=== PATIENT | female | born 1970 | race Caucasian/White ===

== ENCOUNTER 2016-12-26 10:48 | Observation (INO) | payer SELFPAY ==
[2016-12-26] VITALS (7 sets, daily range): BP systolic 109–118; BP diastolic 57–80; PULSE 85–97; RESP 16–20; TEMP 98–98.4; O2SAT 96–100
[~2016-12-26] VITALS: Ht 175.3 cm; Wt 78.3 kg
--- NOTE | 2016-12-26 11:01 | PD ---
HPI Chief Complaint: Trauma (Alert) Time Seen by Provider: 10:50 Travel History International Travel<30 days: No (unknown) Contact w/Intl Traveler<30days: No (unknown) Traveled to known affect area: No (unknown) History of Present Illness HPI This is a 39-mgp-dxip-old female who is brought in as a trauma alert by EMS. The patient was working at her that [employer] office when she had an unwitnessed seizure and struck the back of her head. Pharmacy Benefit Manager call trauma alert based on social media executive discretion and respiratory rate of greater than 30. The patient was apparently postictal in the field and as she was being transported in, she started to regain her mentation. The patient is still slightly postictal but able to give history that she has head pain only. She denies any neck pain. There was reported incontinence in the field. Allergies-Medications (Allergen,Severity, Reaction): Coded Allergies: No Known Allergies (Unverified , 12/26/16) Reported Meds & Prescriptions Reported Meds & Active Scripts Active Reported Lamictal (Lamotrigine) 200 Mg Tab 200 Mg PO HS Lamictal (Lamotrigine) 100 Mg Tab 100 Mg PO DAILY Review of Systems Except as stated in HPI: all other systems reviewed are Neg Eyes: No: Diploplia, Blurred Vision HENT: Positive: Headaches, No: Neck Pain (posterior occipital) Cardiovascular: No: Chest Pain or Discomfort, Palpitations Gastrointestinal: No: Nausea, Vomiting, Abdominal Pain Genitourinary: Positive: Incontinence Musculoskeletal: No: Weakness, Pain Neurologic: Positive: Headache (posterior occipital), Change in Mentation, Incontinence, No: Weakness, Dizziness Physical Exam Narrative GENERAL: Well-developed well-nourished female in no acute respiratory distress. SKIN: Focused skin assessment warm/dry. HEAD: 1 cm laceration to the posterior occiput. No bony deformity appreciated. Normocephalic. EYES: Pupils equal and round. No scleral icterus. No injection or drainage. ENT: No nasal bleeding or discharge. Mucous membranes pink and moist. NECK: Trachea midline. Supple. No posterior spinous process tenderness. CARDIOVASCULAR: Regular rate and rhythm. No murmur appreciated. RESPIRATORY: No accessory muscle use. Clear to auscultation. Breath sounds equal bilaterally. GASTROINTESTINAL: Abdomen soft, non-tender, nondistended. MUSCULOSKELETAL: No obvious deformities. No clubbing. No cyanosis. No edema. NEUROLOGICAL: Awake and alert. No obvious cranial nerve deficits. Motor grossly within normal limits. Normal speech. Data Data Last Documented VS Vital Signs Date Time Temp Pulse Resp B/P Pulse Ox O2 Delivery O2 Flow Rate FiO2 12/26/16 11:46 98.0 87 16 118/64 99 12/26/16 10:58 Nasal Cannula 2.00 Orders I-Stat Profile (12/26/16 10:50) I-Stat Creatinine (12/26/16 10:50) Complete Blood Count With Diff (12/26/16 10:50) Prothrombin Time / Inr (Pt) (12/26/16 10:50) Act Partial Throm Time (Ptt) (12/26/16 10:50) Type And Screen (12/26/16 10:50) Ct Brain W/O Iv Contrast(Rout) (12/26/16 10:50) Ct Cerv Spine W/O Contrast (12/26/16 10:50) Iv Access Insert/Monitor (12/26/16 10:50) Ecg Monitoring (12/26/16 10:50) Oximetry (12/26/16 10:50) Oxygen Administration (12/26/16 10:50) Wound Care (12/26/16 11:21) Lidocai-Epi 1%-1:100,000 Inj (Xylocaine- (12/26/16 11:30) Hddo-Scq-Sjsgiv (Booster) Inj (Boostrix (12/26/16 11:30) Lorazepam Inj (Ativan Inj) (12/26/16 12:15) Magnesium (Mg) (12/26/16 12:22) Phosphorus (Po4) (12/26/16 12:22) Drug Screen, Random Urine (12/26/16 12:22) Labs Laboratory Tests Test 12/26/16 10:51 White Blood Count 7.8 TH/MM3 Red Blood Count 5.05 MIL/MM3 Hemoglobin 15.3 GM/DL Bedside Hemoglobin 15.6 G/DL Hematocrit 45.1 % Bedside Hematocrit 46.0 % Mean Corpuscular Volume 89.4 FL Mean Corpuscular Hemoglobin 30.3 PG Mean Corpuscular Hemoglobin 33.9 % Concent Red Cell Distribution Width 12.9 % Platelet Count 308 TH/MM3 Mean Platelet Volume 8.5 FL Neutrophils (%) (Auto) 69.5 % Lymphocytes (%) (Auto) 22.0 % Monocytes (%) (Auto) 6.8 % Eosinophils (%) (Auto) 0.6 % Basophils (%) (Auto) 1.1 % Neutrophils # (Auto) 5.4 TH/MM3 Lymphocytes # (Auto) 1.7 TH/MM3 Monocytes # (Auto) 0.5 TH/MM3 Eosinophils # (Auto) 0.0 TH/MM3 Basophils # (Auto) 0.1 TH/MM3 CBC Comment DIFF FINAL Differential Comment Prothrombin Time 10.7 SEC Prothromb Time International 1.0 RATIO Ratio Activated Partial 26.0 SEC Thromboplast Time Bedside Sodium 137 MMOL/L Bedside Potassium 3.6 MMOL/L Bedside Chloride 102 MMOL/L Bedside Blood Urea Nitrogen 10 MG/DL Bedside Creatinine 0.9 MG/DL Bedside Glucose 122 MG/DL Blood Type B POSITIVE Antibody Screen NEGATIVE MDM Medical Screen Exam Complete: Yes Emergency Medical Condition: Yes Differential Diagnosis Seizure versus traumatic brain injury versus scalp laceration Narrative Course This patient presents after having a seizure at work. The patient fell and struck the back of her head during her seizure. She was called a trauma alert in the field however soon as she arrived it was obvious that she had just had a seizure and had a scalp laceration from the procedure. The patient's head CT and cervical spine CT showed no evidence of acute process. Laboratory tests are within normal limits. The patient did have another witnessed tonoclonic seizure lasted roughly 40 seconds here in the department. She was loaded with 2 mg of Ativan. She will be admitted to the medicine service. Dr. Langston, [facility], was gracious enough to accept the patient for admission. She'll be admitted to inpatient status. Diagnosis Diagnosis: Primary Impression: Refractory tonic-clonic seizure Additional Impression: posterior scalp laceration Jaspal Walker MD Dec 26, 2016 11:01
[2016-12-26 11:08] LABS: I-STAT POTASSIUM 3.6 MMOL/L (3.5-4.9)
[2016-12-26 11:10] LABS: AUTOMATED NEUTROPHIL # 5.4 TH/MM3 (1.8-7.7); BASOPHIL # 0.1 TH/MM3 (0-0.2); BASOPHIL % 1.1 % (0.0-2.0); EOSINOPHIL % 0.6 % (0.0-4.0); HEMATOCRIT 45.1 % (35.0-46.0); HEMO FLAGS DIFF FINAL; LYMPHOCYTE # 1.7 TH/MM3 (1.0-4.8); MEAN CELL VOLUME 89.4 FL (80.0-100.0); MEAN CORPUSCULAR HEMOGLOBIN 30.3 PG (27.0-34.0); MEAN CORPUSCULAR HGB CONC 33.9 % (32.0-36.0); MONO % 6.8 % (0.0-8.0); NEUT % 69.5 % (16.0-70.0); PLATELET COUNT 308 TH/MM3 (150-450); RED BLOOD COUNT 5.05 MIL/MM3 (4.00-5.30); RED CELL DISTRIBUTION WIDTH 12.9 % (11.6-17.2); WHITE BLOOD COUNT 7.8 TH/MM3 (4.0-11.0)
[2016-12-26 11:20] LABS: PROTHROMBIN TIME - PATIENT 10.7 SEC (9.8-11.6)
[2016-12-26] MEDS ORDERED: DIPHTH/TETANUS/ACEL PERTUSSIS (BOOSTER) 0.5 ML VIAL/PFS IM ONE (11:30)
[2016-12-26] MEDS ORDERED: LIDOCAINE 1%/EPINEPHrine 1:100,000 SOLN 20 ML VIAL INFIL ONE (11:30)
--- NOTE | 2016-12-26 11:31 | RADRPT ---
EXAM DATE/TIME: 12/26/2016 10:58 [facility] COMPARISON: No previous studies available for comparison. INDICATIONS : Seizure with fall , posterior laceration RADIATION DOSE: 39.55 CTDIvol (mGy) MEDICAL HISTORY : Seizures. SURGICAL HISTORY : Non-responsive. ENCOUNTER: Initial ACUITY: 1 day PAIN SCALE: 5/10 LOCATION: cranial TECHNIQUE: Multiple contiguous axial images were obtained of the head. Using automated exposure control and adj ustment of the mA and/or kV according to patient size, radiation dose was kept as low as reasonably a chievable to obtain optimal diagnostic quality images. FINDINGS: CEREBRUM: The ventricles are normal for age. No evidence of midline shift, mass lesion, hemorrhage or acute in farction. No extra-axial fluid collections are seen. POSTERIOR FOSSA: The cerebellum and brainstem are intact. The 4th ventricle is midline. The cerebellopontine angle i s unremarkable. EXTRACRANIAL: The visualized portion of the orbits is intact. SKULL: The calvaria is intact. No evidence of skull fracture. CONCLUSION: No acute intracranial findings. Pepito Odonnell MD on December 26, 2016 at 11:27 Board Certified Radiologist. This report was verified electronically.
--- NOTE | 2016-12-26 11:43 | PD ---
Physical Exam Date Seen by Provider: Dec 26, 2016 Time Seen by Provider: 11:41 Narrative Trauma alert that presents to the ED for evaluation of trauma. Please refer to my attending's note he asked me to repair laceration. Please refer to his note. Data Data Last Documented VS Vital Signs Date Time Temp Pulse Resp B/P Pulse Ox O2 Delivery O2 Flow Rate FiO2 12/26/16 10:58 100 Nasal Cannula 2.00 Orders I-Stat Profile (12/26/16 10:50) I-Stat Creatinine (12/26/16 10:50) Complete Blood Count With Diff (12/26/16 10:50) Prothrombin Time / Inr (Pt) (12/26/16 10:50) Act Partial Throm Time (Ptt) (12/26/16 10:50) Type And Screen (12/26/16 10:50) Ct Brain W/O Iv Contrast(Rout) (12/26/16 10:50) Ct Cerv Spine W/O Contrast (12/26/16 10:50) Iv Access Insert/Monitor (12/26/16 10:50) Ecg Monitoring (12/26/16 10:50) Oximetry (12/26/16 10:50) Oxygen Administration (12/26/16 10:50) Wound Care (12/26/16 11:21) Lidocai-Epi 1%-1:100,000 Inj (Xylocaine- (12/26/16 11:30) Hcjz-Qqr-Jgagru (Booster) Inj (Boostrix (12/26/16 11:30) Labs Laboratory Tests Test 12/26/16 10:51 White Blood Count 7.8 TH/MM3 Red Blood Count 5.05 MIL/MM3 Hemoglobin 15.3 GM/DL Bedside Hemoglobin 15.6 G/DL Hematocrit 45.1 % Bedside Hematocrit 46.0 % Mean Corpuscular Volume 89.4 FL Mean Corpuscular Hemoglobin 30.3 PG Mean Corpuscular Hemoglobin 33.9 % Concent Red Cell Distribution Width 12.9 % Platelet Count 308 TH/MM3 Mean Platelet Volume 8.5 FL Neutrophils (%) (Auto) 69.5 % Lymphocytes (%) (Auto) 22.0 % Monocytes (%) (Auto) 6.8 % Eosinophils (%) (Auto) 0.6 % Basophils (%) (Auto) 1.1 % Neutrophils # (Auto) 5.4 TH/MM3 Lymphocytes # (Auto) 1.7 TH/MM3 Monocytes # (Auto) 0.5 TH/MM3 Eosinophils # (Auto) 0.0 TH/MM3 Basophils # (Auto) 0.1 TH/MM3 CBC Comment DIFF FINAL Differential Comment Prothrombin Time 10.7 SEC Prothromb Time International 1.0 RATIO Ratio Activated Partial 26.0 SEC Thromboplast Time Bedside Sodium 137 MMOL/L Bedside Potassium 3.6 MMOL/L Bedside Chloride 102 MMOL/L Bedside Blood Urea Nitrogen 10 MG/DL Bedside Creatinine 0.9 MG/DL Bedside Glucose 122 MG/DL Blood Type B POSITIVE [facility] Medical Record Reviewed: Yes Supervised Visit with SAMANTHA: No Procedures Procedure Narrative LACERATION LOCATION: occipital scalp LENGTH: 5 cm NUMBER OF STITCHES/ETHAN: 8 ethan REPAIR: The area of the laceration was prepped with Betadine and sterilely draped. The laceration was infiltrated with 1% Xylocaine. The wound was copiously irrigated and explored without evidence of foreign body, tendon injury or neurovascular injury. The wound was closed using sterile stapler. This was a 1 layer repair. A sterile dressing was applied. The patient was advised to keep the dressing clean and dry. Patient tolerated the procedure well. David Shannon Dec 26, 2016 11:43
[2016-12-26] MEDS ORDERED: LAMI200T PO (12:02)
[2016-12-26] MEDS ORDERED: LAMO100 PO (12:02)
[2016-12-26] MEDS ORDERED: LORazepam 2 MG/ML VIAL IV PUSH ONE (12:15)
--- NOTE | 2016-12-26 12:46 | HHI.HP ---
History of Present Illness Primary Care Physician Unknown Admission Diagnosis Diagnoses: History of Present Illness 39 + y.o female with known seizure disorder-had an unwitnessed fall-postictal during the transport-with hyperventilation-GCS 15 in the trauma bay-c/o headache small occipital open wound-HD stable-neuro intact Review of Systems Constitutional: DENIES: Diaphoretic episodes, Fatigue, Fever, Weight gain, Weight loss, Chills, Dizziness, Change in appetite, Night Sweats Endocrine: DENIES: Abnorml menstrual pattern, Heat/cold intolerance, Polydipsia , Polyuria, Polyphagia Eyes: DENIES: Blurred vision, Diplopia, Eye inflammation, Eye pain, Vision loss , Photosensitivity, Double Vision Ears, nose, mouth, throat: DENIES: Tinnitus, Hearing loss, Vertigo, Nasal discharge, Oral lesions, Throat pain, Hoarseness, Ear Pain, Running Nose, Epistaxis, Sinus Pain, Toothache, Odynophagia Respiratory: DENIES: Apneas, Cough, Snoring, Wheezing, Hemoptysis, Sputum production, Shortness of breath Cardiovascular: DENIES: Chest pain, Palpitations, Syncope, Dyspnea on Exertion , PND, Lower Extremity Edema, Orthopnea, Claudication Gastrointestinal: DENIES: Abdominal pain, Black stools, Bloody stools, Constipation, Diarrhea, Nausea, Vomiting, Difficulty Swallowing, Anorexia Genitourinary: DENIES: Abnormal vaginal bleeding, Dysmenorrhea, Dyspareunia, Sexual dysfunction, Urinary frequency, Urinary incontinence, Urgency, Hematuria , Dysuria, Nocturia, Vaginal discharge Musculoskeletal: DENIES: Joint pain, Muscle aches, Stiffness, Joint Swelling, Back pain, Neck pain Integumentary: DENIES: Abnormal pigmentation, Pruritus, Rash, Nail changes, Breast masses, Breast skin changes, Nipple discharge Immunologic/allergic: DENIES: Eczema, Urticaria Neurologic: DENIES: Abnormal gait, Headache, Localized weakness, Paresthesias, Seizures, Speech Problems, Tremor, Poor Balance Psychiatric: DENIES: Anxiety, Confusion, Mood changes, Depression, Hallucinations, Agitation, Suicidal Ideation, Homicidal Ideation, Delusions Past Family Social History Allergies: Coded Allergies: No Known Allergies (Unverified , 12/26/16) Past Medical History seizure disorder Past Surgical History neg Reported Medications seizure med Active Ordered Medications neg Family History neg Social History neg Physical Exam Vital Signs Vital Signs Date Time Temp Pulse Resp B/P Pulse Ox O2 Delivery O2 Flow Rate FiO2 12/26/16 11:46 98.0 87 16 118/64 99 12/26/16 10:58 100 Nasal Cannula 2.00 12/26/16 10:57 100 2.00 Physical Exam GENERAL: This is a well-nourished, well-developed patient, in no apparent distress.GCS 15 SKIN: No rashes, ecchymoses or lesions. Cool and dry. HEAD: . Normocephalic. No temporal or scalp tenderness.1cm open wound occiput EYES: Pupils equal round and reactive. Extraocular motions intact. No scleral icterus. No injection or drainage. ENT: Nose without bleeding, purulent drainage or septal hematoma. Throat without erythema, tonsillar hypertrophy or exudate. Uvula midline. Airway patent. NECK: Trachea midline. No JVD or lymphadenopathy. Supple, nontender, no meningeal signs. CARDIOVASCULAR: Regular rate and rhythm without murmurs, gallops, or rubs. RESPIRATORY: Clear to auscultation. Breath sounds equal bilaterally. No wheezes , rales, or rhonchi. GASTROINTESTINAL: Abdomen soft, non-tender, nondistended. No hepato-splenomegaly , or palpable masses. No guarding. MUSCULOSKELETAL: Extremities without clubbing, cyanosis, or edema. No joint tenderness, effusion, or edema noted. No calf tenderness. Negative Homans sign bilaterally. NEUROLOGICAL: Awake and alert. Cranial nerves II through XII intact. Motor and sensory grossly within normal limits. Five out of 5 muscle strength in all muscle groups. Normal speech. Laboratory Laboratory Tests Test 12/26/16 10:51 White Blood Count 7.8 Red Blood Count 5.05 Hemoglobin 15.3 Bedside Hemoglobin 15.6 Hematocrit 45.1 Bedside Hematocrit 46.0 Mean Corpuscular Volume 89.4 Mean Corpuscular Hemoglobin 30.3 Mean Corpuscular Hemoglobin 33.9 Concent Red Cell Distribution Width 12.9 Platelet Count 308 Mean Platelet Volume 8.5 Neutrophils (%) (Auto) 69.5 Lymphocytes (%) (Auto) 22.0 Monocytes (%) (Auto) 6.8 Eosinophils (%) (Auto) 0.6 Basophils (%) (Auto) 1.1 Neutrophils # (Auto) 5.4 Lymphocytes # (Auto) 1.7 Monocytes # (Auto) 0.5 Eosinophils # (Auto) 0.0 Basophils # (Auto) 0.1 CBC Comment DIFF FINAL Differential Comment Prothrombin Time 10.7 Prothromb Time International 1.0 Ratio Activated Partial 26.0 Thromboplast Time Bedside Sodium 137 Bedside Potassium 3.6 Bedside Chloride 102 Bedside Blood Urea Nitrogen 10 Bedside Creatinine 0.9 Bedside Glucose 122 Blood Type B POSITIVE Antibody Screen NEGATIVE Result Diagram: 12/26/[address] head- negative Assessment and Plan Assessment and Plan S/p fall after seizure postictal state GCS 15 in the trauma bay CT head negative for injury No traumatic issues Care transferred to the EM physician Juju Barrow MD Dec 26, 2016 12:46
--- NOTE | 2016-12-26 13:02 | RADRPT ---
EXAM DATE/TIME: 12/26/2016 10:58 [facility] COMPARISON: No previous studies available for comparison. INDICATIONS : Episode of dizziness inability to ambulate RADIATION DOSE: 20.62 CTDIvol (mGy) MEDICAL HISTORY : Hypertension. Diabetes mellitus type 2. SURGICAL HISTORY : Non-responsive. None. ENCOUNTER: Initial ACUITY: 1 day PAIN SCALE: 6/10 LOCATION: neck TECHNIQUE: Volumetric scanning of the cervical spine was performed. Multiplanar reconstructions in the sagittal, coronal and oblique axial planes were performed. Using automated exposure control and adjustment o f the mA and/or kV according to patient size, radiation dose was kept as low as reasonably achievable to obtain optimal diagnostic quality images. FINDINGS: CT of the cervical spine was performed in sagittal and axial planes. There is straightening of the no rmal cervical lordosis which may be secondary positioning or spasm. No focal areas of marrow replacem ent are identified. The craniocervical junction appears normal. Axial images were performed from C2-C 3 through C7-T1. C2-C3: There is mild diffuse annular bulge of the disc. The neural foramina are clear bilaterally. There is no significant spinal canal stenosis. C3-C4: No significant abnormalities identified. C4-C5: No significant abnormalities identified. C5-C6: A small central protrusion is present impinging on the thecal sac but not significantly deforming the cord. There is no significant spinal canal stenosis. The neural foramina are clear bilaterally. C6-C7: No significant abnormalities identified. C7-T1: No significant abnormalities identified. CONCLUSION: 1. There is no evidence of acute fracture. 2. Since protrusion at C5-C6 without stenosis. 3. Nonspecific mildly enlarged group 2 cervical adenopathy bilaterally. Floyd Vergara MD on December 26, 2016 at 12:55 Board Certified Radiologist. This report was verified electronically.
[2016-12-26] MEDS ORDERED: NALOXONE HCL 0.4 MG/ML AMP IV PRN (14:15)
[2016-12-26] MEDS ORDERED: ACETAMINOPHEN 325 MG TAB PO PRN (14:15)
[2016-12-26] MEDS ORDERED: MAGNESIUM HYDROXIDE SUSP 30 ML CUP PO PRN (14:15)
[2016-12-26] MEDS ORDERED: ONDANSETRON HCL 4 MG/2 ML VIAL IVP PRN (14:15)
[2016-12-26] MEDS ORDERED: SODIUM CHLORIDE 0.9% FLUSH 10 ML FLUSH IV FLUSH PRN (14:15)
[2016-12-26] MEDS ORDERED: LORazepam 2 MG/ML VIAL IV PUSH PRN (14:30)
[2016-12-26 14:48] LABS: MAGNESIUM 1.8 MG/DL (1.5-2.5)
[2016-12-26] MEDS: D5-1/2 NS + KCL 20 MEQ INJ 1,000 ML IV SCH (14:57)
[2016-12-26] MEDS ORDERED: lamoTRIgine 100 MG TAB PO ONE (16:15)
--- NOTE | 2016-12-26 16:58 | HHI.HP ---
[facility] Unknown Admission Diagnosis recurrent seizure, posterior scalp laceration. Diagnoses: Chief Complaint: Seizure Travel History International Travel<30 Days: No (unknown) Contact w/Intl Traveler <30 Da: No (unknown) Traveled to Known Affected Are: No (unknown) History of Present Illness Patient has a history of seizure disorder in which she was found down on the ground at work with head trauma. EMS was called and patient was post ictal and she was transferred to emergency department. Patient did had a witnessed seizure in the ED by the nurse in which she was given Ativan. When I saw patient she is able to give me a history. Patient stated that she does have a history of seizure disorders and she is on Lamictal 100 mg a.m. and 200 mg p.m. She stated that for the past year she's been having more episodes seizures. Patient stated that her PCP is managing the seizures but has not changed her medication when she started having increased episodes. At the moment patient denied mild posterior pain at the suture site in which she had a laceration on her scalp and that was stapled in emergency department. She denied any visual changes, focal neurological deficits or any nausea or vomiting. Patient sisters at the bedside. Review of Systems Constitutional: COMPLAINS OF: Fatigue, DENIES: Diaphoretic episodes, Fever, Weight gain, Weight loss, Chills, Dizziness, Change in appetite, Night Sweats Endocrine: DENIES: Abnorml menstrual pattern, Heat/cold intolerance, Polydipsia , Polyuria, Polyphagia Eyes: DENIES: Blurred vision, Diplopia, Eye inflammation, Eye pain, Vision loss , Photosensitivity, Double Vision Ears, nose, mouth, throat: DENIES: Tinnitus, Hearing loss, Vertigo, Nasal discharge, Oral lesions, Throat pain, Hoarseness, Ear Pain, Running Nose, Epistaxis, Sinus Pain, Toothache, Odynophagia Respiratory: DENIES: Apneas, Cough, Snoring, Wheezing, Hemoptysis, Sputum production, Shortness of breath Cardiovascular: DENIES: Chest pain, Palpitations, Syncope, Dyspnea on Exertion , PND, Lower Extremity Edema, Orthopnea, Claudication Gastrointestinal: DENIES: Abdominal pain, Black stools, Bloody stools, Constipation, Diarrhea, Nausea, Vomiting, Difficulty Swallowing, Anorexia Genitourinary: DENIES: Abnormal vaginal bleeding, Dysmenorrhea, Dyspareunia, Sexual dysfunction, Urinary frequency, Urinary incontinence, Urgency, Hematuria , Dysuria, Nocturia, Vaginal discharge Musculoskeletal: DENIES: Joint pain, Muscle aches, Stiffness, Joint Swelling, Back pain, Neck pain Integumentary: DENIES: Abnormal pigmentation, Pruritus, Rash, Nail changes, Breast masses, Breast skin changes, Nipple discharge Hematologic/lymphatic: DENIES: Bruising, Lymphadenopathy Immunologic/allergic: DENIES: Eczema, Urticaria Neurologic: DENIES: Abnormal gait, Headache, Localized weakness, Paresthesias, Seizures, Speech Problems, Tremor, Poor Balance Psychiatric: DENIES: Anxiety, Confusion, Mood changes, Depression, Hallucinations, Agitation, Suicidal Ideation, Homicidal Ideation, Delusions Past Family Social History Past Medical History Seizure disorder Past Surgical History Denies any past surgical history. Reported Medications Reported Meds & Active Scripts Active Reported Lamictal (Lamotrigine) 200 Mg Tab 200 Mg PO HS Lamictal (Lamotrigine) 100 Mg Tab 100 Mg PO DAILY Allergies: Coded Allergies: No Known Allergies (Unverified , 12/26/16) Active Ordered Medications Current Medications Lidocaine/ Epinephrine (Xylocaine-Epi 1%-1:100,000 Inj) 10 ml ONCE ONCE INFIL Last administered on 12/26/16 11:43; Start 12/26/16 at 11:30; Stop 12/26/16 at 11:31; Status DC Diphtheria/ Tetanus/Acell Pertussis (Boostrix Inj) 0.5 ml ONCE ONCE IM Last administered on 12/26/16 11:43; Start 12/26/16 at 11:30; Stop 12/26/16 at 11:31 ; Status DC Lorazepam 1 mg 1 mg ONCE ONCE IV PUSH Last administered on 12/26/16 12:08; Start 12/26/16 at 12:15; Stop 12/26/16 at 12:16; Status DC Potassium Chloride/Dextrose/ Sod Cl (D5-1/2 NS + KCl 20 Meq Inj) 1,000 ml @ 100 mls/hr Q10H IV Last administered on 12/26/16 14:57; Start 12/26/16 at 16: 00 Sodium Chloride (NS Flush) 2 ml UNSCH PRN IV FLUSH FLUSH AFTER USING IV ACCESS ; Start 12/26/16 at 14:15 Sodium Chloride (NS Flush) 2 ml BID IV FLUSH ; Start 12/26/16 at 21:00 Acetaminophen (Tylenol) 650 mg Q4H PRN PO TEMP > 100.4; Start 12/26/16 at 14:15 Ondansetron HCl (Zofran Inj) 4 mg Q6H PRN IVP NAUSEA OR VOMITING; Start at 14:15 Magnesium Hydroxide (Milk Of Magnloren Liq) 30 ml Q12H PRN PO CONSTIPATION; Start 12/26/16 at 14:15 Naloxone HCl (Narcan Inj) 0.4 mg UNSCH PRN IV SEE LABEL COMMENTS; Start at 14:15 Lorazepam (Ativan Inj) 2 mg Q2H PRN IV PUSH SEIZURES; Start 12/26/16 at 14:30 Lamotrigine (LaMICtal) 200 mg ONCE ONCE PO ; Start 12/26/16 at 16:15; Stop at 16:16; Status DC Family History Patient has paternal aunts with breast cancer. 2 sister breast cancer. Social History Patient lives with her fianc at home. She smokes about 1 pack per day for the past 20 years. Rarely drink alcohol. Denies illicit drug use. Physical Exam Vital Signs Vital Signs Date Time Temp Pulse Resp B/P Pulse Ox O2 Delivery O2 Flow Rate FiO2 12/26/16 14:04 89 16 118/67 98 Nasal Cannula 2 12/26/16 14:04 98 Nasal Cannula 2 12/26/16 12:05 86 20 113/57 98 Non-Rebreather 15 12/26/16 11:46 98.0 87 16 118/64 99 12/26/16 11:40 96 Nasal Cannula 2 12/26/16 10:58 100 Nasal Cannula 2.00 12/26/16 10:57 100 2.00 Physical Exam GENERAL: This is a well-nourished, well-developed patient, in no apparent distress. SKIN: Laceration on the posterior scalp that staple.. HEAD: Atraumatic. Normocephalic. No temporal or scalp tenderness. EYES: Pupils equal round and reactive. Extraocular motions intact. No scleral icterus. No injection or drainage. ENT: Nose without bleeding, purulent drainage or septal hematoma. Throat without erythema, tonsillar hypertrophy or exudate. Uvula midline. Airway patent. NECK: Trachea midline. No JVD or lymphadenopathy. Supple, nontender, no meningeal signs. CARDIOVASCULAR: Regular rate and rhythm without murmurs, gallops, or rubs. RESPIRATORY: Clear to auscultation. Breath sounds equal bilaterally. No wheezes , rales, or rhonchi. GASTROINTESTINAL: Abdomen soft, non-tender, nondistended. No hepato-splenomegaly , or palpable masses. No guarding. MUSCULOSKELETAL: Extremities without clubbing, cyanosis, or edema. No joint tenderness, effusion, or edema noted. No calf tenderness. Negative Homans sign bilaterally. NEUROLOGICAL: Awake and alert. Cranial nerves II through XII intact. Motor and sensory grossly within normal limits. Five out of 5 muscle strength in all muscle groups. Normal speech. Laboratory Laboratory Tests Test 12/26/16 10:51 White Blood Count 7.8 Red Blood Count 5.05 Hemoglobin 15.3 Bedside Hemoglobin 15.6 Hematocrit 45.1 Bedside Hematocrit 46.0 Mean Corpuscular Volume 89.4 Mean Corpuscular Hemoglobin 30.3 Mean Corpuscular Hemoglobin 33.9 Concent Red Cell Distribution Width 12.9 Platelet Count 308 Mean Platelet Volume 8.5 Neutrophils (%) (Auto) 69.5 Lymphocytes (%) (Auto) 22.0 Monocytes (%) (Auto) 6.8 Eosinophils (%) (Auto) 0.6 Basophils (%) (Auto) 1.1 Neutrophils # (Auto) 5.4 Lymphocytes # (Auto) 1.7 Monocytes # (Auto) 0.5 Eosinophils # (Auto) 0.0 Basophils # (Auto) 0.1 CBC Comment DIFF FINAL Differential Comment Prothrombin Time 10.7 Prothromb Time International 1.0 Ratio Activated Partial 26.0 Thromboplast Time Bedside Sodium 137 Bedside Potassium 3.6 Bedside Chloride 102 Bedside Blood Urea Nitrogen 10 Bedside Creatinine 0.9 Bedside Glucose 122 Phosphorus Level 0.7 Magnesium Level 1.8 Blood Type B POSITIVE Antibody Screen NEGATIVE Result Diagram: 12/26/16 1051 Imaging Last Impressions Head CT 12/26/16 1050 Signed Impressions: Service Date/Time: Monday, December 26, 2016 10:58 - CONCLUSION: No acute intracranial findings. Pepito Odonnell MD Cervical Spine CT 12/26/16 1050 Signed Impressions: Service Date/Time: Monday, December 26, 2016 10:58 - CONCLUSION: 1. There is no evidence of acute fracture. 2. Since protrusion at C5-C6 without stenosis. 3. Nonspecific mildly enlarged group 2 cervical adenopathy bilaterally. Floyd Vergara MD Assessment and Plan Assessment and Plan Seizure -Patient has a history of seizure and this was witnessed in the emergency department. -She was given a dose of Ativan. Patient on Lamictal. -Will get an MRI of the head, EEG. Consult neurologist. Will also get Lamictal level. -Neuro checks and monitor on telemetry. Tobacco dependence -Will discuss smoking cessation once patient is more alert. DVT prophylaxis -Low risk SCDs. Code Status full Discussed Condition With With patient and her sister at the bedside. Yarely Langston MD Dec 26, 2016 16:58
[2016-12-26 17:43] LABS: AMPHETAMINE, URINE NEG (NEG); BARBITURATES, URINE NEG (NEG); COCAINE, URINE NEG (NEG)
--- NOTE | 2016-12-26 19:13 | MB ---
cc: CARMEN GIBSON MD DATE OF CONSULTATION 12/26/16 I known the patient as an office patient; her last name is Angelito, first name Aixa. 1970 HISTORY OF PRESENT ILLNESS This is a 46-year-old woman brought in as a Traci Valenzuela, found down on the ground at work with head trauma requiring ethan. She has a history of epilepsy. She has been feeling a little strange, felt funny this morning and apparently had a seizure at work. She works as a manufacturing plant technician. She was postictal and transferred here. She apparently had a witnessed seizure in the emergency room and given Ativan. She does have a history of epilepsy, currently on Lamictal 100 mg in the morning 200 at nighttime. There are times that she states she forgets to take a dose and she may double up. She had two drinks on Sunday she stated, two Schnapps but she does not drink otherwise. She had maybe three seizures since the beginning of the year or three auras since the beginning of the year. She is just complaining now of some head pain from the laceration but otherwise no other issues. SOCIAL HISTORY She works as a manufacturing plant technician. She is a smoker, rarely drinks, used to drink heavy at one point she states. ALLERGIES To medicines none. MEDICATIONS Current, Lamotrigine 100 mg in the morning 200 at bedtime. PHYSICAL EXAMINATION VITAL SIGNS: Temperature is 98, pulse 85, respiratory rate 16, blood pressure 117/80, satting at 97% room air. NECK: Supple. No bruits. HEART: Regular. NEUROLOGIC: She is awake, alert, oriented, fluent. Pupils reactive. Visual overton full. Face symmetrical. Tongue midline. Motor: There is no weakness. No drift. No leg lag. Toes are downgoing. Cerebellar testing is normal. Gait is withheld. LABORATORY DATA CBC is unremarkable. Coag panel was normal. Chemistries - sodium 137, glucose 122, phosphorus 0.7. Tox screen is negative. Her Lamictal level is pending. IMPRESSION A 46-year-old woman with breakthrough seizure. We will, at this point, monitor her for seizures and treat with Ativan p.r.n. Increase Lamictal to 200 mg b.i.d. A level is pending. She needs to have some Ativan as an outpatient 1 mg. Should she have an aura, she is advised to take it. She does have sensation when she is starting to feel like she may have a seizure, so at this point she is able to get into a safe position and notify either her or a coworker and, hence, take her Ativan. She is us not to drive and has not been driving. She has to be seizure free for at least six months. She had an EEG. We will get the final report on that. If she is stable we can look at discharge planning likely tomorrow. Continue current care otherwise. Replace any electrolyte that are abnormal. I will go ahead and make the change on her medication. Smoking was discussed with her as well. MD LE Rivas/ /6:31 PM /6:58 PM
[2016-12-26] MEDS: SODIUM CHLORIDE 0.9% FLUSH 10 ML FLUSH IV FLUSH SCH (21:00)
[2016-12-26] MEDS ORDERED: lamoTRIgine 100 MG TAB PO SCH (21:00)
[2016-12-26] MEDS: lamoTRIgine 100 MG TAB PO SCH (21:14)
--- NOTE | 2016-12-26 21:45 | RADRPT ---
EXAM DATE/TIME: 12/26/2016 20:30 [facility] COMPARISON: CT BRAIN W/O CONTRAST, December 26, 2016, 10:58. INDICATIONS : Seizures. MEDICAL HISTORY : Epilepsy. SURGICAL HISTORY : Stomach surgery. ENCOUNTER: Subsequent ACUITY: 1 day PAIN SCORE: 5/10 LOCATION: head. TECHNIQUE: Multiplanar, multisequence MRI of the brain was performed without contrast. FINDINGS: CEREBRUM: The ventricles are normal for age. No evidence of midline shift, mass lesion, hemorrhage or acute in farction. No extraaxial fluid collections are seen. The pituitary gland and suprasellar cistern are normal in configuration. WHITE MATTER: No significant signal abnormalities are seen in the white matter. POSTERIOR FOSSA: The cerebellum and brainstem are intact. The 4th ventricle is midline. The cerebellopontine angle is unremarkable. The cerebellar tonsils are normal in position. DIFFUSION IMAGING: No focal areas of restricted diffusion are seen. No evidence of acute infarction. EXTRACRANIAL: The visualized portions of the orbits and paranasal sinuses are unremarkable. CONCLUSION: No acute disease. Casimiro Meyer MD on December 26, 2016 at 21:43 Board Certified Radiologist. This report was verified electronically.
[2016-12-27 00:45] VITALS: BP 112/75; PULSE 84; RESP 16; TEMP 97.8; O2SAT 97
[2016-12-27] MEDS: D5-1/2 NS + KCL 20 MEQ INJ 1,000 ML IV SCH ×2 (02:00→11:53)
[2016-12-27 04:34] VITALS: BP 125/69; PULSE 72; RESP 16; TEMP 98.5; O2SAT 97
--- NOTE | 2016-12-27 05:27 | MG ---
cc: KATERINA YORK M.D. Lab No: [id number] Date: 12/26/2016 Age: Sex: F Race: NOTE Hyperventilation omitted. INDICATIONS Hit in the back of her head from a seizure. Postictal. History of seizures. MEDICATIONS 1. Lamictal. 2. Ativan. FINDINGS Some beta and alpha rhythms are noted. The patient appears to be in Stage II sleep throughout the beginning of the recording with some sleep spindles and K-complexes which are synchronous and symmetric. Photic stimulation is performed without significant posterior driving. No hemisphere asymmetries are seen. The patient then has what appears to be a spike wave noted, generalized, and about 2 Hz to 3 Hz at epoch 139, consistent with a primary generalized seizure disorder bifrontally predominant. This lasts about 2 seconds. Another spike wave is seen at epoch 169. IMPRESSION Two episodes of spike wave activity is seen and a third is also noted at the end of the recording at epoch 176 consistent with a primary generalized seizure disorder. Clinical correlation is needed. The patient does need to be on seizure medications. No prolonged seizures are noted. MD DANNA Lagunas/ROBB /11:49 PM /5:20 AM
[2016-12-27 08:00] VITALS: BP 98/59; PULSE 81; RESP 17; TEMP 97.6; O2SAT 96
[2016-12-27] MEDS: lamoTRIgine 100 MG TAB PO SCH (09:00)
[2016-12-27] MEDS ORDERED: lamoTRIgine 100 MG TAB PO SCH (09:00)
[2016-12-27] MEDS: SODIUM CHLORIDE 0.9% FLUSH 10 ML FLUSH IV FLUSH SCH (09:00)
[2016-12-27] MEDS ORDERED: INFLUENZA VIRUS VACCINE (QUADRIVALENT) 0.5 ML SYR IM ONE (09:00)
[2016-12-27] MEDS ORDERED: PNEUMOCOCCAL POLYVALENT INJ 25 MCG/0.5 ML SYR IM ONE (09:00)
[2016-12-27] MEDS ORDERED: POTASSIUM PHOSPHATE MONOBASIC 500 MG TAB PO SCH (11:00)
[2016-12-27 11:43] VITALS: O2SAT 98
[2016-12-27 12:00] VITALS: BP 102/69; PULSE 83; RESP 17; TEMP 97.2; O2SAT 97
[2016-12-27] MEDS ORDERED: K-PHTAB PO (12:22)
[2016-12-27] MEDS ORDERED: LAMO100 PO (12:22)
[2016-12-27] MEDS ORDERED: LORA-474 PO (12:22)
--- NOTE | 2016-12-27 12:23 | HHI.DCPOC ---
Discharge Care Plan Diagnosis: (1) Generalized seizure (2) Low serum phosphorus for age Goals to Promote Your Health * To prevent worsening of your condition and complications * To maintain your health at the optimal level Directions to Meet Your Goals Take your medications as prescribed Follow your dietary instruction Follow activity as directed Keep your appointments as scheduled Take your immunizations and boosters as scheduled If your symptoms worsen call your PCP, if no PCP go to Urgent Care Center or Emergency Room Smoking is Dangerous to Your Health. Avoid second hand smoke Call the 24-hour hour crisis hotline for domestic abuse at Yarely Langston MD Dec 27, 2016 12:23
--- NOTE | 2016-12-27 12:23 | HHI.DS ---
Discharge Summary Admission Date Dec 26, 2016 at 13:52 Discharge Date: Dec 27, 2016 Admitting Diagnosis recurrent seizure, posterior scalp laceration. (1) Generalized seizure ICD Code: R56.9 Diagnosis: Principal (2) Low serum phosphorus for age ICD Code: R79.0 Diagnosis: Secondary Procedures none Brief History - From Admission Patient has a history of seizure disorder in which she was found down on the ground at work with head trauma. EMS was called and patient was post ictal and she was transferred to emergency department. Patient did had a witnessed seizure in the ED by the nurse in which she was given Ativan. When I saw patient she is able to give me a history. Patient stated that she does have a history of seizure disorders and she is on Lamictal 100 mg a.m. and 200 mg p.m. She stated that for the past year she's been having more episodes seizures. Patient stated that her PCP is managing the seizures but has not changed her medication when she started having increased episodes. At the moment patient denied mild posterior pain at the suture site in which she had a laceration on her scalp and that was stapled in emergency department. She denied any visual changes, focal neurological deficits or any nausea or vomiting. Patient sisters at the bedside. CBC/BMP: 12/26/16 1051 Significant Findings Laboratory Tests Test 12/26/16 10:51 Bedside Sodium 137 MMOL/L (138-146) Bedside Glucose 122 MG/DL (60-95) Phosphorus Level 0.7 MG/DL (2.5-4.9) Imaging Last Impressions Head CT 12/26/16 1050 Signed Impressions: Service Date/Time: Monday, December 26, 2016 10:58 - CONCLUSION: No acute intracranial findings. Pepito Odonnell MD Cervical Spine CT 12/26/16 1050 Signed Impressions: Service Date/Time: Monday, December 26, 2016 10:58 - CONCLUSION: 1. There is no evidence of acute fracture. 2. Since protrusion at C5-C6 without stenosis. 3. Nonspecific mildly enlarged group 2 cervical adenopathy bilaterally. Floyd Vergara MD Brain MRI 12/26/16 0000 Signed Impressions: Service Date/Time: Monday, December 26, 2016 20:30 - CONCLUSION: No acute disease. Casimiro Meyer MD PE at Discharge GENERAL: in nad SKIN: Warm and dry. HEAD: Normocephalic.ethan on scalp dry clean and intact. EYES: No scleral icterus. No injection or drainage. NECK: Supple, trachea midline. No JVD or lymphadenopathy. CARDIOVASCULAR: Regular rate and rhythm without murmurs, gallops, or rubs. RESPIRATORY: Breath sounds equal bilaterally. No accessory muscle use. GASTROINTESTINAL: Abdomen soft, non-tender, nondistended. MUSCULOSKELETAL: No cyanosis, or edema. BACK: Nontender without obvious deformity. No CVA tenderness. Neuro: AAO x3. CN 2-12 intact, 5/5 UE and LE strength. sensation grossly intact. coordination intact. Pt update on day of discharge f/u for seizures. patient stated she was back to baseline. denied any CAVANAUGH, visual changes, N/V or focal neurological deficits. She stated she would like to go home. Hospital Course Seizure -Patient has a history of seizure and this was witnessed in the emergency department. -She was given a dose of Ativan in ED. Patient on Lamictal and that restarted. -Neurologist consulted and recommend increasing lamictal to 200 mg BID. levels was pending on day of discharge.. -MRI of the head was negative and EEG suggest seizures. -patient had no more episodes while hospitalized and return to baseline quickly. -Neurologist called and she cleared patient for discharge. Tobacco dependence -smoking cessation. low phosphorus levels -patient was given supplements and told need to f/u with PCP and recheck levels. Pt Condition on Discharge: Good Discharge Disposition: Discharge Home Discharge Time: <= 30 minutes Discharge Instructions DIET: Follow Instructions for: Heart Healthy Diet Activities you can perform: See Additionl Instruction Other Activity Instructions: NO driving or operating heavy machinery for at least 6 months until cleared by PCP or neurologist. Follow up Referrals: Neurology - 2 Weeks with Ewelina Van MD PCP Follow-up - 1 Week New Medications: Lorazepam (Ativan) 1 Mg Tab 1 MG PO Q8H PRN aura #10 Ref 0 TAB Lamotrigine (Lamictal) 100 Mg Tab 200 MG PO Q12HR seizure #30 Ref 0 TAB Potassium Phosphate Monobasic (K-Phos) 500 Mg Tab 1000 MG PO Q12HR low phosphorus #30 Ref 0 TAB Discontinued Medications: Lamotrigine (Lamictal) 100 Mg Tab 100 MG PO DAILY Control Seizures #30 Ref 0 TAB Lamotrigine (Lamictal) 200 Mg Tab 200 MG PO HS Control Seizures #30 Ref 0 TAB Yarely Langston MD Dec 27, 2016 12:23
== END 2016-12-27 14:34 | disposition home or self-care (01) ==
LOC: NEPI 10:48 → INTOOBSV 13:52 → NEDA 13:52 → EDBD 13:52 → N05A 18:36
PROVIDERS: ADMIT Family Medicine; ATTEND Family Medicine
DX: G40.89 Other seizures (principal); S01.01XA Laceration without foreign body of scalp, initial encounter; R32 Unspecified urinary incontinence; R06.4 Hyperventilation; R51 Headache; R79.0 Abnormal level of blood mineral; F17.210 Nicotine dependence, cigarettes, uncomplicated; W18.39XA Other fall on same level, initial encounter; Y99.0 Civilian activity done for income or pay; Z23 Encounter for immunization
CPT/HCPCS: 12002; 70450; 70551; 72125; 80175; 80307; 82435; 82565; 82947; 83735; 84100; 84132; 84295; 84520; 85025; 85610; 85730; 86850; 86900; 86901; 90471; 90472; 90686; 90715; 90732; 95819; 96361; 96374; 99285; 99291; G0378; J2060; J3480; G0008; G0009; G0390; Q2038